=== PATIENT | female | born 1940 | race Caucasian/White ===

== ENCOUNTER 2022-12-08 12:25 | Outpatient (REF) | payer MEDICARE, SELFPAY ==
[2022-12-08 12:56] LABS: Anion Gap 8.1; BUN Creatinine Ratio 31.5; Calcium 8.7 mg/dL (8.5-10.1); Carbon Dioxide 38.4 mmol/L (21.0-32.0); Chloride 101 mmol/L (98-107); Estimated GFR (African America 41 (>=60); Estimated GFR (Non-African Ame 34 (>=60); Glucose 113 mg/dL (74-106); Potassium 3.5 mmol/L (3.5-5.1); Sodium 144 mmol/L (136-145)
== END 2022-12-08 12:30 | disposition home or self-care (01) ==
LOC: LAB 12:25
DX: N18.9 Chronic kidney disease, unspecified (principal)
CPT/HCPCS: 36415; 80048